=== PATIENT | female | born 1970 | race Caucasian/White ===

== ENCOUNTER 2024-06-05 12:51 | Emergency (ER) | payer OTHER ==
[2024-06-05 13:04] VITALS: O2SAT 100
--- NOTE | 2024-06-05 13:08 | ED Physician Documentation ---
History of Present Illness - Stated complaint Stated Complaint: COLD SWEATS, LT EAR PX AND FULLNESS - Chief complaint Chief Complaint: Heent - Additonal information Additional information: 54-year-old female with history of recurrent ear infections presents emergency department for left ear fullness and pain. Patient says that her Recently had a cold for the last week or so she said that she is feeling better over the last few days she has been having increased left ear pain and fullness with cold sweats in the evening. She is prone to ear infections and says this feels very similar to previous ear infections in the past. PD PAST MEDICAL HISTORY - Past Medical History Past Medical History: Yes Psych: Depression, Anxiety - Past Surgical History Past Surgical History: No - Present Medications Home Medications: Ambulatory Orders Medication Instructions Recorded Confirmed Amox/Clav 875/125 [Augmentin 1 tablet PO Q12H 7 Days #14 tablet 06/05/24 875/125 Tab] PARoxetine HCL [Paxil] 1 tab PO DAILY 06/05/24 06/05/24 - Allergies Allergies/Adverse Reactions: Allergies Allergy/AdvReac Type Severity Reaction Status Date / Time Sulfa (Sulfonamide Allergy Hives Verified 06/05/24 12:58 Antibiotics) - Social History Does the pt smoke?: No Smoking Status: Never smoker Does the pt drink ETOH?: No Does the pt have substance abuse?: No - Immunizations Immunizations are current?: Yes - POLST Patient has POLST: No PD ED PE NORMAL - Vitals Vital signs reviewed: Yes - General General: Alert and oriented X 3, No acute distress, Well developed/nourished - HEENT HEENT: Atraumatic, PERRL PD ED PE EXPANDED - HEENT HEENT: Other (right ear normal, Left ear: bulging TM with erythema, TM intact, no purulent drainage) Results - Vitals Vitals: Vital Signs - 24 hr 06/05/24 06/05/24 12:58 13:50 Temperature 36.8 C Heart Rate 64 78 Respiratory 16 18 Rate Blood Pressure 112/63 120/82 H O2 Saturation 100 100 Oxygen O2 Source Room air PD Medical Decision Making - ED course ED course: Exam and history most consistent with AOM. I have a low suspicion at this time for mastoiditis, malignant otitis externa, herpes or ruggiero flores syndrome, or retained foreign body. Patient was given a prescription of Augmentin she was given a paper prescription that she will take to her preferred pharmacy. Cautious return precautions discussed w/ full understanding. Departure - Departure Disposition: 01 Home, Self Care Clinical Impression: Acute otitis media Qualifiers: Otitis media type: suppurative Laterality: right Recurrence: non-recurrent Spontaneous tympanic membrane rupture: without spontaneous rupture Qualified Code(s): H66.001 - Acute suppurative otitis media without spontaneous rupture of ear drum, right ear Instructions: ED Otitis Media Acute Adult Prescriptions: Amox/Clav 875/125 [Augmentin 875/125 Tab] 1 tablet PO Q12H 7 Days #14 tablet Comments: You appear to have an ear infection of your left inner ear. I have prescribed for a total of 7 days but if after 5 days you are having complete symptom improvement you can stop taking the antibiotics after 5 days. Please follow up with your primary care provider as needed as needed upon returning to [place]. Forms: PCP List Discharge Date/Time: 06/05/24 13:50
[2024-06-05 13:53] VITALS: BP 120/82
== END 2024-06-05 13:50 | disposition home or self-care (01) ==
LOC: ED 12:51
DX: H66.001 Acute suppurative otitis media without spontaneous rupture of ear drum, right ear (principal)
CPT/HCPCS: 99282; 99283